=== PATIENT | male | born 1985 ===

== ENCOUNTER 2024-07-15 19:38 | Emergency (ER) | payer SELFPAY ==
[~2024-07-15] VITALS: Ht 170.2 cm; Wt 65.8 kg
[2024-07-15] MEDS ORDERED: Ibuprofen 600 MG Tab PO ONE (22:55)
== END 2024-07-15 22:45 ==
LOC: ER 19:38
DX: R10.31 Right lower quadrant pain (principal); Z91.010 Allergy to peanuts
CPT/HCPCS: 99283